=== PATIENT | female | born 1965 | race Hispanic/Latino ===

== ENCOUNTER 2018-12-22 21:09 | Emergency (ER) | payer SELFPAY ==
--- NOTE | 2018-12-22 23:38 | ED PDOC ---
HPI: Psych/Substance Abuse Time Seen by Provider: 12/22/18 21:27 Chief Complaint (Nursing): Alcohol Ingestion Chief Complaint (Provider): Alcohol ingestion ED Caveat: Altered Mental Status, Intoxicated History Per: Patient, EMS History/Exam Limitations: no limitations Onset/Duration Of Symptoms: Hrs Current Symptoms Are (Timing): Still Present Additional Complaint(s): Cheyanne White is a 53 year old female, with unknown past medical history, who was brought to the emergency department by EMS for alcohol intoxication. Patient was immediately put in the psych room and was seen standing up, laying down on the floor and urinating. Patient required x3 staff members to pick her up and place her on the bed. She attempted to get out again and fell to the floor. Witness saw that patient did not hit her head or sustained other possible injuries due to intoxication and AMS. Attempts to reorient patient unsuccessful, patient is now unsafe and required restraints and sedation. Limited history secondary to alcohol intoxication and AMS. Past Medical History Reviewed: Historical Data, Nursing Documentation, Vital Signs Vital Signs: Last Vital Signs Temp 98 F 12/22/18 21:18 Pulse 100 H 12/22/18 21:55 Resp 18 12/22/18 21:55 BP 140/70 12/22/18 21:55 Pulse Ox 94 L 12/22/18 21:55 Primary Care Provider: DoctorMoncho - Medical History PMH: No Chronic Diseases - Surgical History Surgical History: No Surg Hx - Family History Family History: States: Unknown Family Hx - Allergies Allergies/Adverse Reactions: Allergies Allergy/AdvReac Type Severity Reaction Status Date / Time No Known Allergies Allergy Verified 12/22/18 21:36 Review of Systems Review Of Systems: ROS cannot be obtained secondary to pt's inabilty to answer questions. Neurological: Positive for: Altered Mental Status Psych: Positive for: Other (alcohol intoxication) Physical Exam - Reviewed Nursing Documentation Reviewed: Yes Vital Signs Reviewed: Yes - Physical Exam Appears: Positive for: No Acute Distress (intoxicated, no signs of trauma) Head Exam: Positive for: ATRAUMATIC, NORMAL INSPECTION, NORMOCEPHALIC Skin: Positive for: Normal Color, Warm, Dry Eye Exam: Positive for: Normal appearance, EOMI, PERRL Neck: Positive for: Normal, Painless ROM Cardiovascular/Chest: Positive for: Regular Rate, Rhythm. Negative for: Murmur Respiratory: Positive for: Normal Breath Sounds. Negative for: Respiratory Distress Gastrointestinal/Abdominal: Positive for: Normal Exam, Soft. Negative for: Tenderness Extremity: Positive for: Normal ROM (upper and lower extremities). Negative for: Deformity Neurological/Psych: Positive for: Awake, Alert, Normal Tone, Other (uncooperative) - ECG O2 Sat by Pulse Oximetry: 94 (RA) Pulse Ox Interpretation: Abnormal Medical Decision Making Medical Decision Making: Time: 21:27 Initial Impression: Alcohol intoxication, send alcohol drug level and basic labs. Initial Plan: --Alcohol serum --Ativan 2mg IM --Haldol 5mg IM --1:1 Observation --Restraint: Violent or harm to self/other --Reevaluation 05:40 Upon provide reevaluation patient is alert and oriented with no deficits and medically stable, requires no further treatment in the ED at this time. Patient is to be discharged home. Counseling was provided regarding diagnosis and all questions were answered. Scribe Attestation: Documented by Festus Cosme, acting as a scribe for Sandra Akins. Provider Scribe Attestation: All medical record entries made by the Scribe were at my direction and personally dictated by me. I have reviewed the chart and agree that the record accurately reflects my personal performance of the history, physical exam, medical decision making, and the department course for this patient. I have also personally directed, reviewed, and agree with the discharge instructions and disposition. Disposition - Clinical Impression Clinical Impression: Alcohol abuse - Disposition Referrals: Alcoholics Anonymous [Outside] Disposition: Routine/Home Disposition Time: 05:40 Condition: STABLE Additional Instructions: Do not consume drugs or alcohol. Seek professional help for addiction. Instructions: Alcohol Abuse and Alcoholism (DC), Effects of Alcohol on Your Health Forms: [employer] (Swedish) Print Language: NIUEAN
[2018-12-23 05:46] VITALS: BP 119/80; PULSE 98; RESP 16; TEMP 98.2
[2018-12-24 03:44] VITALS: O2SAT 94
== END 2018-12-23 05:45 | disposition home or self-care (01) ==
LOC: H.ER 21:09
DX: F10.129 Alcohol abuse with intoxication, unspecified (principal); Y90.8 Blood alcohol level of 240 mg/100 ml or more
CPT/HCPCS: 81025; 82948; 96372; 99283; G0480; J1630; J2060